=== PATIENT | female | born 1955 | race Hispanic/Latino ===

== ENCOUNTER 2024-01-31 14:23 | Emergency (ER) | payer MEDICARE | END 2024-01-31 17:19 | disposition home or self-care (01) | LOC: CSHERS 14:23 | DX: T81.89XA Other complications of procedures, not elsewhere classified, initial encounter (principal); E11.621 Type 2 diabetes mellitus with foot ulcer; I10 Essential (primary) hypertension; E78.5 Hyperlipidemia, unspecified | CPT/HCPCS: 99283 ==

== ENCOUNTER 2024-02-05 12:37 | Outpatient (CLI) | payer MEDICARE | END 2024-02-05 12:38 | disposition home or self-care (01) | LOC: CSHWCC 12:37 | PROVIDERS: ATTEND Nurse Practitioner Family | DX: E11.621 Type 2 diabetes mellitus with foot ulcer (principal); L97.514 Non-pressure chronic ulcer of other part of right foot with necrosis of bone; L97.212 Non-pressure chronic ulcer of right calf with fat layer exposed; F03.90 Unspecified dementia, unspecified severity, without behavioral disturbance, psychotic disturbance, mood disturbance, and anxiety; I73.9 Peripheral vascular disease, unspecified | CPT/HCPCS: 11042; 11044; G0463; 99214 ==

== ENCOUNTER 2024-04-15 14:51 | Outpatient (CLI) | payer MEDICARE | END 2024-04-15 14:52 | disposition home or self-care (01) | LOC: CSHWCC 14:51 | PROVIDERS: ATTEND Nurse Practitioner Family | DX: E11.621 Type 2 diabetes mellitus with foot ulcer (principal); L97.512 Non-pressure chronic ulcer of other part of right foot with fat layer exposed; F03.90 Unspecified dementia, unspecified severity, without behavioral disturbance, psychotic disturbance, mood disturbance, and anxiety; I73.9 Peripheral vascular disease, unspecified | CPT/HCPCS: 99212; G0463 ==

== ENCOUNTER 2024-04-29 14:52 | Outpatient (CLI) | payer MEDICARE | END 2024-04-29 14:53 | disposition home or self-care (01) | LOC: CSHWCC 14:52 | PROVIDERS: ATTEND Nurse Practitioner Family | DX: E11.621 Type 2 diabetes mellitus with foot ulcer (principal); L97.512 Non-pressure chronic ulcer of other part of right foot with fat layer exposed; F03.90 Unspecified dementia, unspecified severity, without behavioral disturbance, psychotic disturbance, mood disturbance, and anxiety; E11.59 Type 2 diabetes mellitus with other circulatory complications | CPT/HCPCS: 99212; G0463 ==